=== PATIENT | female | born 1990 | race African-American/Black ===

== ENCOUNTER → 2017-10-22 | Day surgery (SDC) | payer OTHER ==
--- NOTE | 2017-10-19 12:26 | History & Physical Pre-Op ---
General Information and HPI History of Present Illness: Here to schedule surgery. She delivered baby in May. He is doing well now and at home for past two weeks. c/o abdominal pain and nausea after meals. there is large bulge in epigastrum. no change to bowel function. 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 She reports no fatigue, no fever, no night sweats, no significant weight gain, no significant weight loss, and no exercise intolerance. She reports no abnormal moles, no jaundice, no hives, no eczema, and no rashes. She reports no dry eyes, no irritation, no vision change, and no discharge. She reports no swollen glands and no neck stiffness. She reports no cough, no wheezing, no shortness of breath, and no coughing up blood. She reports no chest pain, no arm pain on exertion, no shortness of breath when walking, no shortness of breath when lying down, no palpitations, and no leg swelling. She reports no incontinence, no difficulty urinating, no hematuria, and no increased frequency. She reports no muscle aches, no muscle weakness, no arthralgias/joint pain, and no back pain. She reports no gynecologic complaints. Exam & Diagnostic Data Physical Exam: Patient is a 27-year-old female. Constitutional: General Appearance: healthy-appearing, well-nourished, and well- developed. Level of Distress: no acute distress. Ambulation: ambulating normally. Head: Head: normocephalic and atraumatic. Neck: Neck: supple, trachea midline, no masses, and full range of motion. Thyroid: no enlargement or nodules and non-tender. Lymph Nodes: no cervical LAD, supraclavicular LAD, axillary LAD, or inguinal LAD. Lungs: Respiratory effort: no dyspnea. Auscultation: good air movement and no wheezing. Back: Thoracolumbar Appearance: normal curvature. Abdomen: Inspection and Palpation: no tenderness, guarding, masses, rebound tenderness, or CVA tenderness and soft and non-distended. Bowel Sounds: normal. Liver: non-tender and no hepatomegaly. Spleen: non-tender and no splenomegaly. Hernia: periumbilical (2cm defect, reducible) and ventral (incompletely reducible fat in epigstric defect); large amount diastasis recti in otherwise thin patient.. Skin: Inspection and palpation: no rash, lesions, ulcer, induration, nodules, jaundice, or abnormal nevi and good turgor. Musculoskeletal:: Extremities: no cyanosis, edema, varicosities, or palpable cord. Motor Strength and Tone: normal tone and motor strength. Joints, Bones, and Muscles: no contractures, malalignment, tenderness, or bony abnormalities and normal movement of all extremities. Assessment/Plan Assessment/Plan: 1. Hernia of anterior abdominal wall - recommend laparoscopic repair with closure and underlay mesh. She will call to pick day of surgery. She is awaiting her mother's arrival to assist with childcare. K43.9: Ventral hernia without obstruction or gangrene HERNIA: CARE INSTRUCTIONS Discussion Notes Discussed the pathophysiology of hernias and the need for mesh repair. He understands the permanent nature of mesh. Discussed the risks of surgery including recurrence of the hernia, bleeding and infection. He understands that if mesh infection occurs, removal will necessary. He understands the need for general anesthesia. As Ranked By This Provider Problem List: 1. Ventral hernia without obstruction or gangrene
[~2017-10-22] VITALS: Ht 162.6 cm; Wt 66.2 kg
[~2017-10-22] MED LIST: IBUPROFEN800 M1 PO
--- NOTE | 2017-10-22 15:43 | Operative Report ---
Operative/Inv Procedure Report Surgery Date: 10/22/17 Name of Procedure: Laparoscopic ventral hernia repair with mesh Pre-Operative Diagnosis: Ventral hernia Post-Operative Diagnosis: same Estimated Blood Loss: scant Surgeon/Anesthesiology Resident: Сергей ODELL,Andrzej Lipscomb/Nathaniel MOISE Anesthesia: general endotracheal tube Implants: 9 cm Parietex mesh Operative/Procedure Note Note: After consent patient was brought to the operative room and laid supine. Gen. anesthesia was obtained and her left arm tucked. She her abdomen was then prepped and draped. The skin and left upper quadrant was after local anesthesia and a transverse incision made sharply. Using a 12 mm optical trocar we gained access to the peritoneum visually. Pneumoperitoneum was achieved. No overt bowel injury was identified. 2, 5 mm ports were placed and left lower quadrant after local anesthesia was instilled and under direct vision the camera. The abdomen was explored. There were 2 fascial defects, one at the umbilicus and one superior to it. Both were approximately 2 cm in greatest dimension. We took down the preperitoneal fat circumferentially with cautery. I elected to close the fascial defects intracorporeally prior to placing mesh. This was performed with 2-0 Maxon V lock suture. Once the fascia was closed we measured the dimensions of the hernia defects. I chose a 9 cm round Parietex mesh to cover the defect. The mesh was anchored in 4 quadrants with 0 [place] suture. It was then hydrated rolled up and placed in the peritoneal cavity. It was unraveled below the defect. The transfixion sutures then brought up percutaneously in a sequential fashion. The sutures then tied down after the mesh was laying flat. The mesh was then anchored to the anterior abdominal wall in a double crown fashion using the absorbable tackers. Once were happy the placement mesh we allowed the gas to esape. The ports were delivered and fascia and the left upper quadrant closed with 0 Vicryl suture. Skin incisions closed with 4-0 Vicryl. Steri-Strips and sterile dressing applied. Sponge and needle counts are correct Findings: 2 separate fascial defects CC: Beti Barraza APRN
== END ==
LOC: STS 02:44
DX: K43.9 Ventral hernia without obstruction or gangrene (principal)
CPT/HCPCS: 81025; J0131; J0690; J1100; J2250; J2405; J3490